=== PATIENT | female | born 1990 | race African-American/Black ===

== ENCOUNTER 2023-07-13 13:17 | Emergency (ER) | payer SELFPAY ==
[~2023-07-13] VITALS: Ht 157.5 cm; Wt 95.3 kg
[2023-07-13 13:46] LABS: BASOPHILS % 0.3 % (0.0-1.0); EOSINOPHILS # (AUTO) 0.1 (0.0-0.4); EOSINOPHILS % 1.2 % (0.0-6.0); HEMATOCRIT 41.9 % (34.2-44.1); HEMOGLOBIN 13.5 g/dL (12.0-16.0); LYMPHOCYTES # (AUTO) 2.5 (1.0-3.2); LYMPHOCYTES % 38.1 % (18.0-39.1); MEAN CORPUSCULAR HGB CONC 32.2 g/dL (31-35); MEAN CORPUSCULAR VOLUME 80.6 fL (81-99); MONOCYTES # (AUTO) 0.5 (0.2-0.8); MONOCYTES % 7.2 % (4.4-11.3); NEUTROPHILS # (AUTO) 3.4 (2.1-6.9); PLATELET COUNT 269 x10e3/uL (140-360); WHITE BLOOD COUNT 6.49 x10e3/uL (4.8-10.8)
[2023-07-13 14:07] LABS: ALANINE AMINOTRANSFERASE 17 IU/L (0-55); ALBUMIN 3.6 g/dL (3.5-5.0); ALBUMIN/GLOBULIN RATIO 1.1 (0.8-2.0); ALKALINE PHOSPHATASE 61 IU/L (40-150); ANION GAP 11.3 mmol/L (8-16); BILIRUBIN,TOTAL 0.4 mg/dL (0.2-1.2); BLOOD UREA NITROGEN 9 mg/dL (7-26); BUN/CREATININE RATIO 10 (6-25); CARBON DIOXIDE 24 mmol/L (22-29); CHLORIDE 107 mmol/L (98-107); CREATININE, SERUM 0.86 mg/dL (0.57-1.11); EST GLOMERULAR FILTRATION RATE 91 ML/MIN (>=60); GLUCOSE 88 mg/dL (74-118); MAGNESIUM 1.6 MG/DL (1.3-2.1); SODIUM 139 mmol/L (136-145); TOTAL PROTEIN 6.9 g/dL (6.5-8.1)
[2023-07-13 14:11] LABS: POTASSIUM 3.3 mmol/L (3.5-5.1)
[2023-07-13] MEDS: DIPHENHYDRAMINE HCL INJ 50 MG/ML VIAL IV ONE (14:22)
[2023-07-13] MEDS: SODIUM CHLORIDE 0.9% 1000ML 1,000 ML IV STA (14:22)
[2023-07-13] MEDS: KETOROLAC TROMETHAMINE 30 MG/ML VIAL IV STA (14:23)
[2023-07-13] MEDS: ONDANSETRON HCL INJ 2MG/ML 2ML 2 MG/ML VIAL IV STA (14:23)
[2023-07-13] MEDS ORDERED: FIORICET 50-301 EACH PO (15:43)
[2023-07-13 16:00] VITALS: BP 124/85; PULSE 67; RESP 16; O2SAT 100
== END 2023-07-13 16:00 | disposition home or self-care (01) ==
LOC: ER 13:23
DX: R51.9 Headache, unspecified (principal); R11.0 Nausea
CPT/HCPCS: 36415; 80053; 83735; 84702; 85025; 99283; J1200; J1885; J2405; J7030